=== PATIENT | female | born 1950 | race Caucasian/White ===

== ENCOUNTER → 2017-12-31 10:39 | Outpatient (CLI) | payer MEDICARE, OTHER, SELFPAY ==
--- NOTE | 2017-12-31 10:51 | RAD_ITS ---
STUDY: X-RAY CHEST REASON FOR EXAM: Female, 67 years old. The patient as a history of melanoma. TECHNIQUE: PA and lateral views of the chest. COMPARISON: Comparison is made with prior study dated July 13, 2017. FINDINGS: The lungs are clear and expanded. Scattered calcified granulomas. There is no demonstrated pleural abnormality. Normal size heart. Normal mediastinum and diamante. Normal visualized pulmonary arteries. There is atherosclerotic tortuosity of the aortic arch and descending thoracic aorta. There are degenerative changes of the visualized thoracic spine. Normal visualized ribs, clavicles, and shoulders. There is no demonstrated abnormality of the visualized soft tissue structures of the upper abdomen. RAD/Chest PA and Lateral IMPRESSION: No acute abnormality is seen. Electronically Signed: Tuan Huffman MD at 14:21 EDT Tel [phone], Service support ,
== END ==
PROVIDERS: Family Provider Family Medicine; PCP Family Medicine
DX: C77.9 Secondary and unspecified malignant neoplasm of lymph node, unspecified (principal)
CPT/HCPCS: 71046

== ENCOUNTER → 2018-06-04 15:14 | Outpatient (CLI) | payer MEDICARE, OTHER, SELFPAY | PROVIDERS: Family Provider Family Medicine; PCP Family Medicine; Visit Provider Chiropractor | DX: M54.16 Radiculopathy, lumbar region (principal) | CPT/HCPCS: 72110 ==

== ENCOUNTER → 2018-07-15 09:23 | Outpatient (CLI) | payer MEDICARE, OTHER, SELFPAY ==
--- NOTE | 2018-07-15 09:28 | RAD_ITS ---
STUDY: X-RAY CHEST REASON FOR EXAM: Female, 67 years old. Melanoma surveillance. TECHNIQUE: PA and lateral views of the chest. COMPARISON: Comparison is made with prior study dated December 31, 2017. FINDINGS: The lungs are clear and expanded. Scattered calcified granulomas. There is no demonstrated pleural abnormality. Normal size heart. Normal mediastinum and diamante. Normal visualized pulmonary arteries. There is atherosclerotic tortuosity of the aortic arch and descending thoracic aorta. There are diffuse degenerative changes of the visualized thoracic spine. Normal visualized ribs, clavicles, and shoulders. There is no demonstrated abnormality of the visualized soft tissue structures of the upper abdomen. RAD/Chest PA and Lateral IMPRESSION: No acute abnormality is seen. Electronically Signed: Tuan Huffman MD at 12:35 EDT Tel [phone], Service support ,
== END ==
PROVIDERS: Family Provider Family Medicine; PCP Family Medicine
DX: C77.9 Secondary and unspecified malignant neoplasm of lymph node, unspecified (principal)
CPT/HCPCS: 71046

== ENCOUNTER → 2018-12-10 10:09 | Outpatient (CLI) | payer MEDICARE, OTHER, SELFPAY ==
[2018-12-10 12:11] LABS: Absolute Lymphocyte Count 1.84 X10^3/ul (0.83-4.51); Absolute Neutrophil Count 3.7 X10^3/uL (2.0-7.7); Basophil# 0.02 X10^3/uL; Basophil% 0.3 % (0-1); Eosinophil# 0.52 X10^3/uL; Eosinophils% 8.1 % (0-5); Hematocrit 42.1 % (37-47); Hemoglobin 13.4 g/dl (12.0-15.0); Lymphocyte # 1.84 X10^3/ul (4.0); Lymphocyte % 28.5 % (19-41); Mean Corp Hgb Conc 31.8 g/gl (32-36); Mean Corpuscular Hgb 30.1 pg (27.0-32.0); Mean Corpuscular Volume 94.6 fL (81-99); Mean Platelet Vol. 10.5 fl (6.2-12.0); Monocyte# 0.37 X10^3/uL; Monocyte% 5.7 % (0-10); Neutrophil # 3.69 X10^3/uL (2.7-7.7); Neutrophil % 57.2 % (47-70); Platelet Count 256 K/mm3 (150-450); RBC Distribution Width CV 13.1 % (11.6-14.6); Red Blood Count 4.45 M/mm3 (4.2-5.4); White Blood Count 6.5 K/mm3 (4.4-11.0)
[2018-12-10 12:14] LABS: POSITIVE COUNT NO; POSITIVE DIFFERENTIAL NO; POSITIVE MORPHOLOGY NO
[2018-12-10 13:01] LABS: ALB/GLOB Ratio 1.1 RATIO (0.9-2.4); AST(SGOT) 16 U/L (15-37); Alanine Aminotransfer ALT/SGPT 24 U/L (13-56); Albumin, Serum 4.1 g/dL (3.2-5.0); Alkaline Phosphatase 107 U/L (45-117); Anion Gap 9 (5-15); BUN 17 mg/dL (7-18); Calcium,Total 9.2 mg/dL (8.5-10.1); Chloride 102 mmol/L (98-107); Creatinine, Serum 0.77 mg/dL (0.55-1.02); EST Glomerular Filtration Rate 79 mL/min (>60); Est Glom Filt Rate - Afr Amer 96 mL/min (>60); Globulin 3.7 g/dL (2.2-4.2); Glucose 92 mg/dL (74-106); Potassium 3.9 mmol/L (3.5-5.1); Protein, Total 7.8 g/dL (6.4-8.2); Rheumatoid Factor < 10.0 IU/mL (<15); Sodium Level 141 mmol/L (136-145)
[2018-12-12 12:15] LABS: CCP IgG Antibodies 26 units (0-19)
== END ==
PROVIDERS: Family Provider Family Medicine; PCP Family Medicine; Visit Provider Family Medicine
DX: R73.01 Impaired fasting glucose (principal); I89.0 Lymphedema, not elsewhere classified; R06.02 Shortness of breath
CPT/HCPCS: 36415; 80053; 83036; 85025; 86200; 86431

== ENCOUNTER → 2018-12-30 14:12 | Outpatient (CLI) | payer MEDICARE, OTHER, SELFPAY ==
[2018-12-24 16:19] VITALS: BMI 35.4
--- NOTE | 2018-12-30 14:14 | CT_ITS ---
STUDY: CT ABDOMEN AND PELVIS WITH CONTRAST REASON FOR EXAM: Female, 68 years old. Abdominal pain. History of melanoma. RADIATION DOSAGE (If Supplied By Facility): CTDIvol = ( 10.03 ) mGy, DLP = ( 1820.98 ) mGycm TECHNIQUE: Transaxial images were obtained from the dome of the diaphragm to the symphysis pubis without oral contrast. 75ML ml of Isovue 370 contrast was administered. Sagittal and coronal images were reconstructed. Individualized dose optimization techniques were used for this CT. COMPARISON: None. FINDINGS: The visualized lung bases are clear. The visualized portions of the heart and pericardium are within normal limits. There are no calcified gallstones present. The liver is within normal limits. There are no suspicious hepatic lesions. The spleen is normal in size. The pancreas is within normal limits. The adrenal glands are within normal limits. There are no renal or ureteral stones. There is no hydronephrosis. There are parapelvic cysts in the left kidney. Normal visualized stomach. There is no bowel obstruction or inflammation. The appendix is visualized and appears normal. The aorta is normal in caliber. There are surgical clips in the left groin. There is adjacent left external iliac lymphadenopathy noted with a 4.4 x 4.3 x 3.8 cm node. There is no free air, free fluid or fluid collection. There is a 5 cm complex appearing right adnexal cyst. There are no destructive osseous lesions. CT/Abdomen/Pelvis WITH Contrast IMPRESSION: Surgical clips in the left groin with an adjacent 4.4 x 4.3 x 3.8 cm left external iliac node. Given the history of melanoma in the left leg, this is highly suspicious for neoplasm. Complex 5 cm right adnexal cyst. Given the patient's age, this is abnormal. Further evaluation with ultrasound or MRI is recommended. No bowel obstruction or inflammation. Normal appendix. Parapelvic cysts in the left kidney. No hydronephrosis. Electronically Signed: Juan Corona, at 17:11 EDT Tel , Service support ,
== END ==
PROVIDERS: Family Provider Family Medicine; PCP Family Medicine; Referring Provider Surgery; Visit Provider Surgery
DX: R10.9 Unspecified abdominal pain (principal); R19.4 Change in bowel habit; Z85.820 Personal history of malignant melanoma of skin
CPT/HCPCS: 74177; Q9967

== ENCOUNTER 2019-01-07 06:43 | Day surgery (SDC) | payer MEDICARE, OTHER, SELFPAY ==
[2018-12-24 16:19] VITALS: BMI 35.4
[2019-01-07] VITALS (10 sets, daily range): BP systolic 125–186; BP diastolic 53–108; PULSE 75–87; RESP 14–16; TEMP 36.2–36.8; O2SAT 91–100; BMI 39.8
--- NOTE | 2019-01-07 08:00 | COLBX_PTH ---
PATIENT: BREN RALPH LOC: EN U#:[id number] AGE/SX: 68/F ROOM: RE01/07/[address]: Dr. Timothy Le MD : 1950 BED: DIS: 01/07/2019 SPEC #: [id number] RECD: 01/07/19 09:20 STATUS: JAIME WALTON #: [id number] VERONIKA: 01/07/19 08:[address]: Timothy Le DEPT: SURGICAL PATHOLOGY RECD BY: Maryann Mercedes ENTERED: 01/07/19 11:26 SP TYPE: COLON BX OTHR DR: Dr. Edmond Dubois MD Tissues: COLON BIOPSY Procedures: Surgery Specimen Level IV HEADER OPERATION: Colonoscopy (MOD) PRE-OP DIAGNOSIS: Change in bowel habits, abdominal pain TISSUE SUBMITTED: Random colon biopsies MICROSCOPIC DIAGNOSIS Colon, random biopsy: Fragments of colonic mucosa, no pathologic diagnosis. SJ:aquilino 01/08/19 MICROSCOPIC DESCRIPTION Slides are reviewed. GROSS DESCRIPTION Received in fixative is one container labeled with the patient's name and designated random colon biopsy. The specimen consists of multiple irregular fragments of light browne soft tissue that in aggregate measure 1.5 x 0.8 x 0.1 cm. The specimen is totally submitted in one cassette. / SJ:rg 01/07/19 TC:4 CPT: 36715
--- NOTE | 2019-01-07 08:35 | OP.ENDO_ITS ---
01/07/2019 Edmond Dubois Re : Colonoscopy procedure for Liberty Khan Dear Sherly This procedure was performed on Monday, January 07, 2019. My impressions and recommendations are as follows: Impressions : - Hemorrhoids found on perianal exam. - Diverticulosis in the sigmoid colon. Biopsied. - The examination was otherwise normal. Recommendations : - Discharge patient to home. - Resume previous diet. - Continue present medications. - Repeat colonoscopy in 10 years for screening purposes. - Telephone my office for pathology results in 1 week. My findings are described in the full procedure note, which is enclosed. If I can be of further assistance, please feel free to contact me at Doctor phone number(s): Work: . Sincerely, Timothy Le MD 01/07/2019 8:34:40 AM This report has been signed electronically.
== END 2019-01-07 10:20 | disposition home or self-care (01) ==
LOC: EN 06:44 → AC 06:45
PROVIDERS: Family Provider Family Medicine; PCP Family Medicine; Referring Provider Surgery; Visit Provider Surgery
PROC: 0DJD8ZZ Inspection of Lower Intestinal Tract, Via Natural or Artificial Opening Endoscopic (ICD-10-PCS; CPT 45378; principal; 2019-01-07 07:55)
DX: K57.30 Diverticulosis of large intestine without perforation or abscess without bleeding (principal); K64.9 Unspecified hemorrhoids; R19.4 Change in bowel habit; R10.33 Periumbilical pain; Z85.820 Personal history of malignant melanoma of skin
CPT/HCPCS: 45380; 88305; 99152; 99153; J7120; J2405

== ENCOUNTER → 2019-11-26 12:17 | Outpatient (CLI) | payer MEDICARE, OTHER, SELFPAY ==
[2019-11-13 06:21] VITALS: BMI 37.9
--- NOTE | 2019-11-26 12:20 | ECHOD_ITS ---
Reason For Study: DYSPNEA Procedure This was a 2D Doppler, Color Flow transthoracic echocardiogram. Myocardial strain analysis was performed in this exam to aid in the assessment of cardiac function. Exam performed in department. Left Ventricle Normal LV size. The estimated ejection fraction is 65 %. Normal diastology for age. No regional wall motion abnormalities noted. Right Ventricle Normal RV size. Normal systolic function. Atria Normal left atrium. Normal right atrium. Mitral Valve Normal mitral valve. Tricuspid Valve Normal tricuspid valve. Mild tricuspid valve insufficiency. Pulmonary artery systolic pressure is 32 mmHg. Aortic Valve Trisinus/trileaflet aortic valve. Mild focal aortic valve thickening. Pulmonic Valve Normal pulmonic valve. Great Vessels Normal aortic root. The pulmonary artery is normal size. Normal inferior vena cava. Pericardium/Pleural No pericardial effusion. MMode/2D Measurements & Calculations LVIDd: 4.7 cm IVSd: 0.73 cm Ao root diam: 3.7 cm LVIDs: 3.0 cm LVPWd: 0.81 cm RVDd: 3.4 cm FS: 35.9 % LAV(MOD-bp): 50.9 ml LA A4 area: 16.4 cm2 LA dimension(2D): 3.3 cm LAV(MOD-bp) Indexed: 25.6 ml/m2 LAV(MOD-sp2): 50.0 ml LAV(MOD-sp4): 45.8 ml RA A4 area: 12.8 cm2 Time Measurements MV dec time: 0.21 sec Doppler Measurements & Calculations MV E max abdirashid: 73.7 cm/sec Lat Peak E' Abdirashid: 11.2 cm/sec Med Peak E' Abdirashid: 7.0 cm/sec MV A max abdirashid: 97.8 cm/sec E/E' lat: 6.6 E/E' med: 10.6 MV E/A: 0.75 Ao V2 max: 152.5 cm/sec LV V1 max: 107.4 cm/sec PA V2 max: 102.5 cm/sec Ao max P.3 mmHg LV V1 max P.6 mmHg TR max abdirashid: 268.4 cm/sec TR max P.8 mmHg Interpretation Summary Normal LV size. The estimated ejection fraction is 65 %. Normal diastology for age. Mild focal aortic valve thickening. Mild tricuspid valve insufficiency. The global longitudinal strain is normal. The global longitudinal strain = -24.5 % (normal). Ordering Physician: Neo Madrid Referring Physician: LOLA DEVLIN Performed By: Lorin Pugh, SANAMCS, RVT
== END ==
PROVIDERS: PCP Family Medicine; Referring Provider Internal Medicine Critical Care Medicine; Visit Provider Internal Medicine Critical Care Medicine
DX: R06.00 Dyspnea, unspecified (principal); J45.909 Unspecified asthma, uncomplicated; Z98.890 Other specified postprocedural states
CPT/HCPCS: 93306

== ENCOUNTER → 2019-11-27 08:46 | Outpatient (CLI) | payer MEDICARE, OTHER, SELFPAY ==
[2019-11-13 06:21] VITALS: BMI 37.9
--- NOTE | 2019-11-28 09:33 | PFT ---
INTRODUCTION: The patient is a 68-year-old female that presents for pulmonary function studies secondary to a diagnosis of COPD. Respiratory therapy reports good patient effort. Bronchodilators were used during testing. INTERPRETATION: Forced expiration spirometry demonstrates the presence of a severe large airways obstructive ventilatory defect. There was a significant response to aerosolized bronchodilators noted, based upon change noted in both FVC and FEV1. Spirograms are of fair quality and plateau gradually indicating slow emptying of the lungs. Body plethysmography was performed and reveals an elevated TLC and RV, indicative of underlying hyperinflation and air trapping. Diffusing capacity by single breath CO is reduced at 57% of predicted. IMPRESSION: Partially reversible severe large airways obstructive ventilatory defect with associated hyperinflation, air trapping and reduction in diffusing capacity.
== END ==
PROVIDERS: PCP Family Medicine; Referring Provider Internal Medicine Critical Care Medicine; Visit Provider Internal Medicine Critical Care Medicine
DX: J45.909 Unspecified asthma, uncomplicated (principal)
CPT/HCPCS: 94060; 94726; 94729

== ENCOUNTER → 2020-04-26 12:46 | Outpatient (CLI) | payer MEDICARE, OTHER, SELFPAY ==
[2020-03-15 07:57] VITALS: BMI 38.1
--- NOTE | 2020-04-27 13:55 | PFT ---
INTRODUCTION: The patient is a 69-year-old female that presents for pulmonary function studies secondary to a diagnosis of asthma. Respiratory therapy reports good patient effort. Bronchodilators were used during testing. INTERPRETATION: Forced expiration spirometry demonstrates no evidence of a large airways obstructive ventilatory defect. There was no significant response to aerosolized bronchodilators. Spirograms are of good quality and plateau normally. Body plethysmography was performed and reveals lung volumes to be within normal limits. Diffusing capacity by single breath CO is also within normal limits. There was significant improvement in the patient's PFTs when compared to testing completed in November 2019. IMPRESSION: Grossly normal pulmonary function studies with significant interval improvement since PFTs were last completed in November 2019.
== END ==
PROVIDERS: PCP Family Medicine; Referring Provider Internal Medicine Critical Care Medicine; Visit Provider Internal Medicine Critical Care Medicine
DX: C79.9 Secondary malignant neoplasm of unspecified site (principal); J45.909 Unspecified asthma, uncomplicated
CPT/HCPCS: 94060; 94726; 94729

== ENCOUNTER 2020-05-27 14:30 | Outpatient (RCR) | payer MEDICARE, OTHER, SELFPAY ==
[2020-03-15 07:57] VITALS: BMI 38.1
--- NOTE | 2020-04-07 07:05 | HP.PTEVAL ---
Patient's Visit Information BREN RALPH is a 69 year old F referred to Physical Therapy by TOM OLIVER with a diagnosis of Bilateral Shoulder RTC. 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 Ortho Oncologist take out bone or let it go and see if it breaks- she did radiation on her right arm and she is still having infusions. Went back last week- and he walked in and said im sending you to PT. The tumor in her shoulder is pretty much gone. Due to the tumor she was not able to move the shoulder so she now has impingment. The pain is mostly at night and when she is using them. Sleep: disturbed- hard to sleep on the side. She is able to do pretty much everything down low but anything overhead is an issue. She is very active- but is retired. Right hand dominate. Pain is located in the anterior shoulder- no radiating pain- reports its dull and achy. Worst: 7/10- Best: 0/10. Eases: rest with the shoulder at the side and Tylenol. PMHx: Metastatic Melanoma Meds: atenolol, vipetrix. Port in her right shoulder - Objective Posture: FH, RS, increased kyphosis- mild guarding of the rigth UE- can correct with verbal cues but does not maintain. Gait: decreased arm swing and trunk rotation. Palpation: tender along bicipital groove- and along medial border of the scapula. ROM:left shoulder/wrist/hand: WNL Cervical spine: WNL right shoulder: AROM: flexion: 50 degrees, abd: 30 degrees, ER: 50 degreers IR: to greater troch AAROM: flexion: 110 degrees, abd: 90 degrees- did not perform Prom as guarding and did not want to push through pain due to unknown bone integrity. Elbow/Wrist/hand: WNL. Strength: Scap: fair minus, Shoulder: Right: 2+/5 throughout Elbow: 4-/5, Wrist: 4-/5, Left: 4-/5 throughout shoulder Elbow: 4+/5, wrist: 4+/5, [employer]: diminished bilaterally - Goals Goal 1:: Patient will be I with HEP and progression Goal Time Frame: 4-6 Weeks Goal 2:: Patient will demo full AROM of the right shoulder Goal Time Frame: 4-6 Weeks Goal 3:: Patient will maintain proper posture t/o tx session to demo increased scap s/s. Goal Time Frame: 4-6 Weeks Goal 4:: Patient will report ability to complete all ADL's, Goal Time Frame: 4-6 Weeks - Rehabilitation Potential Physical Therapy Diagnosis: Patient presents with hypomobility- she has decreased ROM, strength and muscular endurance leading to poor posture and inability to perform ADL's. Rehabilitation Potential: Good - Anticipated Interventions Patient/Client Instruction: Educate patient on: Benefits of Fitness Program Therapeutic Exercise to Include: Strength training, Endurance training, Coordination, Agility training, Body mechanics, Postural training, Neuromotor development, Passive ROM, Active ROM, Scapular Strength/Stabilization For the Purpose of:: To improve muscle performance and motor function TENS: Yes Cryotherapy (ice pack, ice massage): Yes Thermo therapy (hot pack): Yes Ultrasound (thermal/non thermal): No Thank you for the opportunity to evaluate your patient. For Medicare and Medicare HMO plans, please review the plan of care and approve it. It will need to be FAXED BACK to us at [phone] for Medicare purposes. For Medicare only, by signing this I certify the plan of care. Please let me know if there are questions or concerns regarding this plan of care. Physician Signature: Date:
--- NOTE | 2020-04-29 15:24 | HP.PTREVAL ---
TOM OLIVER, It has been my pleasure to treat BREN RALPH over the last 7 visits for Bilateral Shoulder RTC. Please see the progress note below for an update on the physical therapy plan of care! Subjective: Patient reports that she is getting better- but sleeping is the most burdensome- she feels that turning side to side is an issue. Has been taking more Tylenol since starting PT. Her knees are acting up but they think its more from the infusions. Patient still has pain with getting everyday activities done. Pain is a 5/10 then she takes it out of that position and it feels better. Objective/Function: Posture: good throughout in straight back chair. Palpation: tender along upper trap, bicpital groove and into the scapula. AROM: Flexion: 140 degrees Abd: 100 degrees IR: pocket. Strength: Isometric: 4+/5 Scap: fair plus Plan Plan: Continue 2x 4- Focus on ROM and scapular s/s- GENTLE Goals Goal 1:: Patient will be I with HEP and progression Goal Time Frame: 4-6 Weeks Goal 2:: Patient will demo full AROM of the right shoulder Goal Time Frame: 4-6 Weeks Goal 3:: Patient will maintain proper posture t/o tx session to demo increased scap s/s. Goal Time Frame: 4-6 Weeks Goal 4:: Patient will report ability to complete all ADL's, Goal Time Frame: 4-6 Weeks Anticipated Interventions Patient/Client Instruction: Educate patient on: Benefits of Fitness Program Therapeutic Exercise to Include: Strength training, Endurance training, Coordination, Agility training, Body mechanics, Postural training, Neuromotor development, Passive ROM, Active ROM, Scapular Strength/Stabilization For the Purpose of:: To improve muscle performance and motor function TENS: Yes Cryotherapy (ice pack, ice massage): Yes Thermo therapy (hot pack): Yes Ultrasound (thermal/non thermal): No Please do not hesitate to contact me at [phone] by phone or if you have questions or concerns regarding this new plan of care! Sincerely, Urvashi Carrion DPT
--- NOTE | 2020-05-27 14:52 | HP.PTDCSUM_ITS ---
It has been my pleasure to treat BREN RALPH referred by TOM OLIVER, with the diagnosis of Bilateral Shoulder RTC for a total of 13 visit(s). Discharge Date: Please see the following information for a summary of their discharge status. Subjective: Patient reports that she is great except for sleeping when she turns on either side. She powerwashed today for like 2 hours. There is nothing she can't do anymore with her shoulder. She feels 90% better. R sh Pain Intensity (Out of 10): 1 % Improvement: 90 Objective/Function: Posture: good throughout in straight back chair. Palpation: tender along upper trap, bicpital groove and into the scapula. AROM: Flexion/A bd: WNL IR: pocket. Strength: Isometric: 4+/5 Scap: fair plus Goal 1:: Patient will be I with HEP and progression Goal 2:: Patient will demo full AROM of the right shoulder Goal 3:: Patient will maintain proper posture t/o tx session to demo increased scap s/s. Goal 4:: Patient will report ability to complete all ADL's, Plan: Discharge to I HEP If there are questions or concerns regarding this patient's physical therapy, please feel free to call me at [phone]. Thank you for the referral of this patient. Sincerely, Urvashi Carrion DPT
== END 2020-05-27 19:00 | disposition home or self-care (01) ==
LOC: PT 14:30
PROVIDERS: PCP Family Medicine
DX: M25.511 Pain in right shoulder (principal)
CPT/HCPCS: 97110; 97162; 97164

== ENCOUNTER → 2020-08-25 17:41 | Outpatient (CLI) | payer MEDICARE, OTHER, SELFPAY ==
[2020-03-15 07:57] VITALS: BMI 38.1
== END ==
PROVIDERS: PCP Family Medicine; Referring Provider Family Medicine; Visit Provider Family Medicine
DX: U07.1 COVID-19 (principal)
CPT/HCPCS: 87635; C9803; U0003

== ENCOUNTER → 2020-11-18 12:20 | Outpatient (CLI) | payer MEDICARE, OTHER, SELFPAY ==
[2020-09-16 12:46] VITALS: BMI 36.1
[2020-11-18 15:37] LABS: Erythrocyte Sedimentation Rate 7 mm/hr (0-30)
[2020-11-18 15:39] LABS: Absolute Lymphocyte Count 1.08 X10^3/uL (0.83-4.51); Basophil# 0.04 X10^3/uL; Basophil% 0.5 % (0-1); Eosinophil# 0.12 X10^3/uL; Eosinophils% 1.6 % (0-5); Hematocrit 39.8 % (37-47); Hemoglobin 12.8 g/dL (12.0-15.0); Lymphocyte # 1.08 X10^3/ul (4.0); Lymphocyte % 14.2 % (19-41); Mean Corp Hgb Conc 32.2 g/dL (32-36); Mean Corpuscular Volume 96.4 fL (81-99); Mean Platelet Vol. 10.4 fl (6.2-12.0); Monocyte# 0.29 X10^3/uL; Monocyte% 3.8 % (0-10); NRBC Flagged by Analyzer 0 % (0-5); Neutrophil # 6.02 X10^3/uL (2.7-7.7); Neutrophil % 79.5 % (47-70); Platelet Count 238 K/mm3 (150-450); RBC Distribution Width SD 46.3 fl (35.1-43.9); Red Blood Count 4.13 M/mm3 (4.2-5.4); White Blood Count 7.6 K/mm3 (4.4-11.0)
[2020-11-18 15:54] LABS: ALB/GLOB Ratio 1.1 RATIO (0.9-2.4); AST(SGOT) 14 U/L (15-37); Alanine Aminotransfer ALT/SGPT 23 U/L (13-56); Albumin, Serum 4.1 g/dL (3.2-5.0); Alkaline Phosphatase 93 U/L (45-117); Anion Gap 7 (5-15); BUN 22 mg/dL (7-18); BUN/Creat Ratio 27.5 RATIO (10-20); CRP 4.93 mg/L (0.0-3.0); Calcium,Total 9.9 mg/dL (8.5-10.1); Chloride 102 mmol/L (98-107); EST Glomerular Filtration Rate 76 mL/min (>60); Est Glom Filt Rate - Afr Amer 91 mL/min (>60); Globulin 3.6 g/dL (2.2-4.2); Glucose 114 mg/dL (74-106); Protein, Total 7.7 g/dL (6.4-8.2); Rheumatoid Factor < 10.0 IU/mL (<15); Sodium Level 137 mmol/L (136-145)
[2020-11-19 09:32] LABS: Hepatitis B Surface Antibody Non-Reactive; Hepatitis B Surface Antigen Non-Reactive (Nonreactive); Hepatitis C Antibody Non-Reactive (Nonreactive)
[2020-11-21 14:52] LABS: ANTINUCLEAR ANTIBODIES DIRECT Positive (Negative)
[2020-11-23 08:41] LABS: CCP IgG Antibodies 26 units (0-19)
== END ==
PROVIDERS: PCP Family Medicine; Referring Provider Internal Medicine Rheumatology; Visit Provider Internal Medicine Rheumatology
DX: M06.4 Inflammatory polyarthropathy (principal); M17.0 Bilateral primary osteoarthritis of knee; I10 Essential (primary) hypertension; C79.9 Secondary malignant neoplasm of unspecified site; N32.81 Overactive bladder; I89.0 Lymphedema, not elsewhere classified; N90.4 Leukoplakia of vulva
CPT/HCPCS: 36415; 80053; 85025; 85652; 86038; 86140; 86200; 86431; 86706; 86803; 87340